=== PATIENT | male | born 1970 | race Two or more races ===

== ENCOUNTER 2020-07-15 05:15 | Inpatient (IN) | payer MEDICAID ==
[~2020-07-15] VITALS: Ht 180.3 cm; Wt 78.9 kg
[2020-07-15 05:57] LABS: Basophils # (auto) 0 10 ^3/uL (0-0.2); Basophils % (auto) 0.3 % (0.0-2.0); Eosinophils # (auto) 0 10 ^3/uL (0-0.8); Hematocrit 52.2 % (41.0-53.0); Hemoglobin 17.7 g/dL (13.5-17.5); Lymphocytes # (auto) 0.7 10 ^3/uL (0.4-5.4); Lymphocytes % (auto) 4.1 % (10.0-50.0); Mean Corpuscular Hemoglobin 30.3 pg (28.0-32.0); Mean Corpuscular Volume 89.1 fL (80.0-100.0); Monocytes # (auto) 0.7 10 ^3/uL (0-1.3); Monocytes % (auto) 3.8 % (0.0-12.0); Neutrophils # (auto) 16.3 10 ^3/uL (1.6-8.6); Neutrophils % (auto) 91.8 % (37.0-80.0); Platelet Count (auto) 269 10^3/uL (140-450); Red Blood Cells 5.86 10^6/uL (4.5-5.90); Red Cell Distribution Width 13.2 % (11.8-14.3); White Blood Cell 17.8 10^3/uL (4.4-10.8)
[2020-07-15 06:12] LABS: Albumin 3.5 g/dL (3.4-5.0); Calcium 8.4 mg/dL (8.5-10.1); Potassium 3.6 mmol/L (3.5-5.1)
[2020-07-15 06:16] LABS: BUN/Creatinine Ratio 18.7; Bilirubin, Total 0.5 mg/dL (0.2-1.0); Total Protein 7.4 g/dL (6.4-8.2)
[2020-07-15] MEDS ORDERED: ONDANSETRON HCL 4 MG/2 ML VIAL IV ONE (06:45)
[2020-07-15] MEDS ORDERED: PANTOPRAZOLE 40 MG/10 ML VIAL INJ IV ONE (06:45)
[2020-07-15] MEDS ORDERED: SODIUM CHLORIDE 0.9% 1,000 ML IV ONE ×2 (06:45)
[2020-07-15] MEDS ORDERED: metroNIDAZOLE 500MG/100ML 100 ML IV ONE (07:30)
[2020-07-15 08:16] LABS: Lactic Acid w/Reflex 2.9 mmol/L (0.4-2.0)
[2020-07-15 08:25] LABS: Urine WBC None Seen /hpf (0 - 3)
[2020-07-15 08:40] LABS: Urine Bacteria NONE SEEN /hpf (None Seen); Urine Blood Negative /uL (Negative); Urine Mucus FEW (None Seen); Urine Specific Gravity 1.033 (1.001-1.035)
[2020-07-15] MEDS ORDERED: ACETAMINOPHEN 325 MG TAB PO PRN (10:45)
[2020-07-15] MEDS ORDERED: METOCLOPRAMIDE HCL 5MG/ml INJ 2ml VIAL IV PRN (10:45)
[2020-07-15] MEDS: D5W/SOD CHL 0.45% 1,000 ML IV SCH (10:45)
[2020-07-15] MEDS ORDERED: MORPHINE SULF INJ 2 MG/ML SYRINGE 1ML IV PRN ×2 (10:45)
[2020-07-15] MEDS ORDERED: NITROGLYCERIN 0.4 MG SL TAB SL PRN (10:45)
[2020-07-15] MEDS ORDERED: DEXTROSE (50%) 50ML SYRG IV PRN (10:45)
[2020-07-15] MEDS ORDERED: ALUM & MAG HYDROX-SIMETH LIQ(MAALOX) 30 ML PO PRN (10:45)
[2020-07-15] MEDS ORDERED: HYDROcodone-ACET 5/325MG TAB PO PRN (10:45)
[2020-07-15] MEDS: cefTRIAXone 1GM/50ML D5W 50 ML IV SCH (11:04)
[2020-07-15 11:19] LABS: Cholesterol 144 mg/dL (< 200)
[2020-07-15 11:22] LABS: HDL Cholesterol 52 mg/dL (40-59); LDL Cholesterol 76 mg/dL (< 100); Triglycerides 78 mg/dL (< 150)
[2020-07-15 11:43] LABS: INR 0.99 (0.9-1.15); Partial Thromboplastin Time 28.8 sec (23.0-31.2)
[2020-07-15 11:58] LABS: Alcohol, Urine < 3.0 mg/dL (0-10); Amphetamine Screen, Urine NEGATIVE (NEGATIVE); Barbiturate Scree,Urine NEGATIVE (NEGATIVE); Benzodiazephine Screen, Urine NEGATIVE (NEGATIVE); Cannabinoid Screen, Urine POSITIVE (NEGATIVE); Cocaine Screen, Urine NEGATIVE (NEGATIVE); Phencyclidine Screen, Urine NEGATIVE (NEGATIVE)
[2020-07-15 12:04] LABS: Opiate Scree,Urine NEGATIVE (NEGATIVE)
[2020-07-15 12:28] VITALS: BP 149/80
[2020-07-15] MEDS: ACCU-CHEK COMFORT CURVE STRIP VI SCH ×2 (12:28→18:27)
[2020-07-15] MEDS: InsuLIN REG 1unit/0.01ml Soln (100units/ml) SC SCH ×2 (12:28→18:30)
[2020-07-15] MEDS: hydrALAZINE HCL 20 MG/ML VL IV SCH ×3 (12:30→23:58)
[2020-07-15 12:51] VITALS: BP 142/79
[2020-07-15] MEDS: metroNIDAZOLE 500MG/100ML 100 ML IV SCH ×2 (13:58→21:55)
[2020-07-15 16:35] VITALS: BP 154/81
[2020-07-15] MEDS: SUCRALFATE 1 GM/10 ML ORAL SUSP PO SCH ×2 (17:00→21:55)
[2020-07-15] MEDS ORDERED: GLIP10TA9 PO (17:25)
[2020-07-15] MEDS ORDERED: HYDR25TA4 PO (17:25)
[2020-07-15] MEDS ORDERED: SIMV-8 PO (17:25)
[2020-07-15] MEDS ORDERED: METF-370 PO (17:25)
[2020-07-15] MEDS ORDERED: LISI-646 PO (17:25)
[2020-07-15] MEDS ORDERED: GAB100C GT (17:25)
[2020-07-15] MEDS ORDERED: ASPI-543 PO (17:25)
[2020-07-15] MEDS: ESOMEPRAZOLE 40 MG/5ml VIAL INJ IV SCH (21:55)
[2020-07-15 22:00] VITALS: BP_SYST 127; BP_SYST 145; BP_DIAS 69; BP_DIAS 80
[2020-07-16] MEDS: InsuLIN REG 1unit/0.01ml Soln (100units/ml) SC SCH ×3 (00:01→12:00)
[2020-07-16] MEDS: ACCU-CHEK COMFORT CURVE STRIP VI SCH ×3 (00:01→11:49)
[2020-07-16 05:00] VITALS: BP 134/81
[2020-07-16] MEDS: metroNIDAZOLE 500MG/100ML 100 ML IV SCH ×2 (06:03→14:00)
[2020-07-16] MEDS: hydrALAZINE HCL 20 MG/ML VL IV SCH ×2 (06:03→12:00)
[2020-07-16] MEDS: D5W/SOD CHL 0.45% 1,000 ML IV SCH (06:03)
[2020-07-16] MEDS: SUCRALFATE 1 GM/10 ML ORAL SUSP PO SCH ×3 (06:10→17:00)
[2020-07-16 06:55] LABS: Basophils # (auto) 0 10 ^3/uL (0-0.2); Basophils % (auto) 0.3 % (0.0-2.0); Eosinophils # (auto) 0.1 10 ^3/uL (0-0.8); Eosinophils % (auto) 0.4 % (0.0-7.0); Hematocrit 47.2 % (41.0-53.0); Hemoglobin 16.5 g/dL (13.5-17.5); Lymphocytes # (auto) 1.5 10 ^3/uL (0.4-5.4); Mean Corpuscular Hemoglobin 30.7 pg (28.0-32.0); Mean Corpuscular Volume 87.7 fL (80.0-100.0); Monocytes # (auto) 1.1 10 ^3/uL (0-1.3); Monocytes % (auto) 8.2 % (0.0-12.0); Neutrophils # (auto) 11.1 10 ^3/uL (1.6-8.6); Neutrophils % (auto) 80.1 % (37.0-80.0); Platelet Count (auto) 258 10^3/uL (140-450); Red Blood Cells 5.38 10^6/uL (4.5-5.90); Red Cell Distribution Width 13.1 % (11.8-14.3); White Blood Cell 13.8 10^3/uL (4.4-10.8)
[2020-07-16] MEDS ORDERED: LIDOCAINE VISCOUS 2% 15ML UD ONE (08:39)
[2020-07-16] MEDS ORDERED: SODIUM CHLORIDE LOCK 10 ML ONE (08:39)
[2020-07-16] MEDS ORDERED: diphenhdrAMINE HCL 50 MG/1 ML VL ONE (08:40)
[2020-07-16 09:00] VITALS: BP 136/81
[2020-07-16] MEDS: cefTRIAXone 1GM/50ML D5W 50 ML IV SCH (09:00)
[2020-07-16] MEDS: ESOMEPRAZOLE 40 MG/5ml VIAL INJ IV SCH (10:00)
[2020-07-16] MEDS: MIDAZOLAM HCL 5 MG/ML-1ML VIAL ONE ×2 (10:45→10:48)
[2020-07-16] MEDS: fentaNYL CITRATE 100 MCG/2 ML VL ONE ×2 (10:45→10:48)
[2020-07-16 13:00] VITALS: BP 136/82
[2020-07-16] MEDS ORDERED: PANT40TA2 PO (14:28)
[2020-07-16] MEDS ORDERED: SUCR1SUS5 PO (14:28)
[2020-07-16] MEDS ORDERED: METR500T PO (14:44)
[2020-07-16 17:00] VITALS: BP 131/78
== END 2020-07-16 18:00 | disposition home or self-care (01) | DRG 241 ==
LOC: ER 05:15 → OVERFLOW 10:42 → WEST WING 11:50
PROVIDERS: ADMIT Hospitalist; ATTEND Hospitalist
PROC: 0DB68ZX Excision of Stomach, Via Natural or Artificial Opening Endoscopic, Diagnostic (ICD-10-PCS; 2020-07-16)
PROC: 0DB98ZX Excision of Duodenum, Via Natural or Artificial Opening Endoscopic, Diagnostic (ICD-10-PCS; principal; 2020-07-16 10:40)
DX: K29.00 Acute gastritis without bleeding (principal); K26.9 Duodenal ulcer, unspecified as acute or chronic, without hemorrhage or perforation; Z20.822 Contact with and (suspected) exposure to COVID-19; D72.829 Elevated white blood cell count, unspecified; I11.9 Hypertensive heart disease without heart failure; E11.9 Type 2 diabetes mellitus without complications; K29.80 Duodenitis without bleeding; K44.9 Diaphragmatic hernia without obstruction or gangrene; Z83.3 Family history of diabetes mellitus
CPT/HCPCS: 36415; 43239; 71045; 74176; 80053; 80061; 80307; 81001; 82962; 83036; 83605; 83690; 85025; 85610; 85730; 86677; 87040; 87426; 93005; 96361; 96365; 96367; 96375; C9113; G0378; J0696; J1815; J2250; J2405; J3490

== ENCOUNTER 2020-08-27 11:31 | Inpatient (IN) | payer MEDICAID ==
[~2020-08-27] VITALS: Ht 180.3 cm; Wt 85.6 kg
[~2020-08-27 11:31] MED LIST: ASPI-543 PO; GAB100C GT; GLIP10TA9 PO; HYDR25TA4 PO; LISI20TA28 PO; METF-370 PO; METR500T PO; PANT40TA2 PO; SIMV-8 PO; SUCR1SUS5 PO
[2020-08-27 12:13] LABS: Basophils # (auto) 0.1 10 ^3/uL (0-0.2); Eosinophils # (auto) 0.3 10 ^3/uL (0-0.8); Lymphocytes # (auto) 2.6 10 ^3/uL (0.4-5.4); Mean Corpuscular Volume 86.7 fL (80.0-100.0)
[2020-08-27 12:15] LABS: Basophils % (auto) 0.8 % (0.0-2.0); Eosinophils % (auto) 2.4 % (0.0-7.0); Hematocrit 54.6 % (41.0-53.0); Hemoglobin 18.9 g/dL (13.5-17.5); Lymphocytes % (auto) 23.1 % (10.0-50.0); Mean Corpuscular Hgb Conc. 34.6 g/dL (32.0-36.0); Monocytes # (auto) 1.2 10 ^3/uL (0-1.3); Monocytes % (auto) 10.4 % (0.0-12.0); Neutrophils # (auto) 7.1 10 ^3/uL (1.6-8.6); Neutrophils % (auto) 63.3 % (37.0-80.0); Nucleated Red Blood Cells % 0.6 %; Platelet Count (auto) 348 10^3/uL (140-450); Red Blood Cells 6.29 10^6/uL (4.5-5.90); Red Cell Distribution Width 12.9 % (11.8-14.3); White Blood Cell 11.3 10^3/uL (4.4-10.8)
[2020-08-27 12:18] LABS: Albumin 4.2 g/dL (3.4-5.0); Calcium 9.7 mg/dL (8.5-10.1); Potassium 4.6 mmol/L (3.5-5.1)
[2020-08-27 12:21] LABS: BUN/Creatinine Ratio 19.8; Bilirubin, Total 1.8 mg/dL (0.2-1.0); Total Protein 8.2 g/dL (6.4-8.2)
[2020-08-27] MEDS ORDERED: PANTOPRAZOLE 40 MG TAB PO ONE (12:30)
[2020-08-27] MEDS ORDERED: SODIUM CHLORIDE 0.9% 1,000 ML IV ONE (16:00)
[2020-08-27] MEDS ORDERED: ONDANSETRON HCL 4 MG/2 ML VIAL IV PRN (16:00)
[2020-08-27] MEDS ORDERED: ACETAMINOPHEN 325 MG TAB PO PRN (16:00)
[2020-08-27] MEDS: SUCRALFATE 1 GM/10 ML ORAL SUSP PO SCH ×2 (17:25→21:32)
[2020-08-27 20:59] VITALS: BP 119/79
[2020-08-27 21:19] VITALS: BP 119/79
[2020-08-27] MEDS ORDERED: HYDR-4795 PO (21:24)
[2020-08-27] MEDS: PANTOPRAZOLE 40 MG TAB PO SCH (21:32)
[2020-08-27] MEDS: HYDROcodone-ACET 5/325MG TAB PO PRN (21:32)
[2020-08-27] MEDS ORDERED: PANTOPRAZOLE 40 MG TAB PO SCH (22:00)
[2020-08-28 05:00] VITALS: BP 113/78
[2020-08-28 06:02] LABS: Potassium 4.2 mmol/L (3.5-5.1)
[2020-08-28 06:11] LABS: Calcium 8.8 mg/dL (8.5-10.1)
[2020-08-28 06:16] LABS: Basophils # (auto) 0.1 10 ^3/uL (0-0.2); Eosinophils # (auto) 0.3 10 ^3/uL (0-0.8); Lymphocytes # (auto) 2.2 10 ^3/uL (0.4-5.4); Monocytes # (auto) 0.9 10 ^3/uL (0-1.3)
[2020-08-28 06:17] LABS: Eosinophils % (auto) 3.8 % (0.0-7.0); Hematocrit 51.5 % (41.0-53.0); Hemoglobin 17.8 g/dL (13.5-17.5); Lymphocytes % (auto) 28.2 % (10.0-50.0); Mean Corpuscular Hemoglobin 30.2 pg (28.0-32.0); Mean Corpuscular Hgb Conc. 34.5 g/dL (32.0-36.0); Mean Corpuscular Volume 87.5 fL (80.0-100.0); Neutrophils # (auto) 4.5 10 ^3/uL (1.6-8.6); Nucleated Red Blood Cells % 1.3 %; Platelet Count (auto) 283 10^3/uL (140-450); Red Blood Cells 5.88 10^6/uL (4.5-5.90); Red Cell Distribution Width 13.1 % (11.8-14.3)
[2020-08-28] MEDS: SUCRALFATE 1 GM/10 ML ORAL SUSP PO SCH ×4 (06:40→21:38)
[2020-08-28 09:00] VITALS: BP 119/80
[2020-08-28] MEDS: PANTOPRAZOLE 40 MG TAB PO SCH ×2 (10:00→21:38)
[2020-08-28 13:00] VITALS: BP 125/78
[2020-08-28 16:40] VITALS: BP 126/86
[2020-08-28] MEDS: HYDROcodone-ACET 5/325MG TAB PO PRN (20:17)
[2020-08-28 22:00] VITALS: BP 125/92
[2020-08-28] MEDS ORDERED: glipiZIDE 5 MG TAB PO ONE (22:30)
[2020-08-28] MEDS ORDERED: INSULIN LANTUS (GLARGINE) 1 /0.01ml (100units/ml) SC ONE (22:45)
[2020-08-28] MEDS ORDERED: DEXTROSE (50%) 50ML SYRG IV PRN (22:45)
[2020-08-29] MEDS ORDERED: ACCU-CHEK COMFORT CURVE STRIP VI SCH
[2020-08-29] MEDS ORDERED: InsuLIN REG 1unit/0.01ml Soln (100units/ml) SC SCH
[2020-08-31] MEDS ORDERED: SUCR1SUS5 PO (11:32)
[2020-08-31] MEDS ORDERED: PANT40TA2 PO (11:32)
== END 2020-08-29 00:27 | disposition home or self-care (01) | DRG 251 ==
LOC: ER 11:31 → OVERFLOW 15:51 → CENTRAL 20:30
PROVIDERS: ADMIT Internal Medicine; ATTEND Internal Medicine
DX: R10.9 Unspecified abdominal pain (principal); K31.84 Gastroparesis; E11.43 Type 2 diabetes mellitus with diabetic autonomic (poly)neuropathy; K52.9 Noninfective gastroenteritis and colitis, unspecified; Z20.822 Contact with and (suspected) exposure to COVID-19; K92.1 Melena; E78.5 Hyperlipidemia, unspecified; I10 Essential (primary) hypertension; Z87.11 Personal history of peptic ulcer disease
CPT/HCPCS: 36415; 74176; 78226; 80048; 80053; 85025; 87081; 87426; 96360; 96361; G0378

== ENCOUNTER 2020-12-01 08:15 | Emergency (ER) | payer MEDICAID ==
[~2020-12-01] VITALS: Ht 180.3 cm; Wt 90.7 kg
[~2020-12-01 08:15] MED LIST changes: -GAB100C GT; +HYDR-4795 PO
[2020-12-01 09:39] VITALS: BP 119/86
== END 2020-12-01 09:45 | disposition home or self-care (01) ==
LOC: ER 08:15
DX: B34.9 Viral infection, unspecified (principal); I10 Essential (primary) hypertension; E11.9 Type 2 diabetes mellitus without complications; Z79.82 Long term (current) use of aspirin; Z79.899 Other long term (current) drug therapy; Z20.822 Contact with and (suspected) exposure to COVID-19
CPT/HCPCS: 36415; 71045; 82962; 87426

== ENCOUNTER 2020-12-21 08:38 | Emergency (ER) | payer MEDICAID ==
[~2020-12-21] VITALS: Ht 180.3 cm; Wt 84.4 kg
[2020-12-21] MEDS ORDERED: SODIUM CHLORIDE 0.9% 1,000 ML IV ONE ×2 (09:00)
[2020-12-21] MEDS ORDERED: ONDANSETRON HCL 4 MG/2 ML VIAL ONE (09:41)
[2020-12-21] MEDS ORDERED: ONDANSETRON HCL 4 MG/2 ML VIAL IV ONE (09:45)
[2020-12-21 09:56] LABS: Basophils # (auto) 0 10 ^3/uL (0-0.2); Basophils % (auto) 0.4 % (0.0-2.0); Eosinophils # (auto) 0.1 10 ^3/uL (0-0.8); Eosinophils % (auto) 1.4 % (0.0-7.0); Hematocrit 50.2 % (41.0-53.0); Hemoglobin 17.3 g/dL (13.5-17.5); Lymphocytes # (auto) 1.2 10 ^3/uL (0.4-5.4); Lymphocytes % (auto) 11.5 % (10.0-50.0); Mean Corpuscular Hgb Conc. 34.5 g/dL (32.0-36.0); Mean Corpuscular Volume 87.2 fL (80.0-100.0); Monocytes # (auto) 0.6 10 ^3/uL (0-1.3); Neutrophils # (auto) 8.6 10 ^3/uL (1.6-8.6); Neutrophils % (auto) 80.7 % (37.0-80.0); Nucleated Red Blood Cells % 0.2 %; Red Blood Cells 5.76 10^6/uL (4.5-5.90); Red Cell Distribution Width 13.3 % (11.8-14.3); White Blood Cell 10.7 10^3/uL (4.4-10.8)
[2020-12-21 10:18] LABS: Albumin 3.9 g/dL (3.4-5.0); Anion Gap 9 (5-15); Blood Urea Nitrogen 16 mg/dL (7-18); Calcium 9.3 mg/dL (8.5-10.1); Carbon Dioxide 27 mmol/L (21-32); Chloride 98 mmol/L (98-107); Glucose 254 mg/dL (74-106); Potassium 4.6 mmol/L (3.5-5.1); Sodium 134 mmol/L (136-145)
[2020-12-21 10:24] LABS: Alanine Aminotransferase 36 U/L (16-61); Alkaline Phosphatase 83 U/L (45-117); Aspartate Aminotransferase 21 U/L (15-37); BUN/Creatinine Ratio 16.5; Bilirubin, Total 1.8 mg/dL (0.2-1.0); GFR African American 105 mL/min; GFR Non-African American 86 mL/min; Total Protein 7.7 g/dL (6.4-8.2)
[2020-12-21 11:03] LABS: Urine Bacteria NONE SEEN /hpf (None Seen); Urine Blood Negative /uL (Negative); Urine Mucus FEW (None Seen); Urine Specific Gravity 1.017 (1.001-1.035); Urine WBC 1 /hpf (0 - 3)
[2020-12-21 14:32] VITALS: BP 122/73
== END 2020-12-21 16:21 | disposition home or self-care (01) ==
LOC: ER 08:38
DX: R53.1 Weakness (principal); E11.65 Type 2 diabetes mellitus with hyperglycemia; I10 Essential (primary) hypertension; Z79.82 Long term (current) use of aspirin; Z79.899 Other long term (current) drug therapy; Z20.822 Contact with and (suspected) exposure to COVID-19
CPT/HCPCS: 36415; 70450; 71045; 74176; 80053; 81001; 82962; 83036; 84484; 85025; 87426; 93005; 96361; 96374; 99285; C9803; J2405; J7030; U0003

== ENCOUNTER 2022-02-08 23:23 | Emergency (ER) | payer MEDICAID ==
[~2022-02-08] VITALS: Ht 180.3 cm; Wt 90.0 kg
[2022-02-08 23:30] VITALS: BP 135/81
[2022-02-08] MEDS ORDERED: diazePAM 5 MG TAB PO ONE (23:30)
[2022-02-08] MEDS ORDERED: ONDANSETRON HCL 4 MG/2 ML VIAL IV ONE (23:30)
[2022-02-08] MEDS ORDERED: SODIUM CHLORIDE 0.9% 500 ML IV ONE (23:30)
[2022-02-09 00:11] LABS: Basophils # (auto) 0.1 10 ^3/uL (0-0.2); Basophils % (auto) 0.5 % (0.0-2.0); Eosinophils # (auto) 0.3 10 ^3/uL (0-0.8); Eosinophils % (auto) 2.6 % (0.0-7.0); Hematocrit 47.4 % (41.0-53.0); Hemoglobin 15.9 g/dL (13.5-17.5); Lymphocytes # (auto) 1.8 10 ^3/uL (0.4-5.4); Lymphocytes % (auto) 13.1 % (10.0-50.0); Mean Corpuscular Hemoglobin 30.1 pg (28.0-32.0); Mean Corpuscular Hgb Conc. 33.5 g/dL (32.0-36.0); Mean Corpuscular Volume 89.7 fL (80.0-100.0); Monocytes # (auto) 0.8 10 ^3/uL (0-1.3); Monocytes % (auto) 5.8 % (0.0-12.0); Neutrophils # (auto) 10.5 10 ^3/uL (1.6-8.6); Red Blood Cells 5.29 10^6/uL (4.5-5.90); Red Cell Distribution Width 13.5 % (11.8-14.3); White Blood Cell 13.4 10^3/uL (4.4-10.8)
[2022-02-09 00:19] LABS: BUN/Creatinine Ratio 21.1; Calcium 8.9 mg/dL (8.5-10.1); Potassium 3.5 mmol/L (3.5-5.1)
[2022-02-09 00:22] LABS: Bilirubin, Total 0.6 mg/dL (0.2-1.0); Total Protein 7.2 g/dL (6.4-8.2)
[2022-02-09] MEDS ORDERED: InsuLIN REG 1unit/0.01ml Soln (100units/ml) IV ONE (08:00)
== END 2022-02-09 09:31 | disposition home or self-care (01) ==
LOC: ER 23:23 → EDBD 23:23 → ER 02-09 09:31
DX: E11.65 Type 2 diabetes mellitus with hyperglycemia (principal); F12.929 Cannabis use, unspecified with intoxication, unspecified; I10 Essential (primary) hypertension; Z91.14 Patient's other noncompliance with medication regimen
CPT/HCPCS: 36415; 71045; 80053; 84484; 85025; 93005

== ENCOUNTER 2025-01-25 17:09 | Emergency (ER) | payer MEDICAID ==
[~2025-01-25] VITALS: Ht 180.3 cm; Wt 90.0 kg
[~2025-01-25 17:09] MED LIST changes: -LISI20TA28 PO; +LISI20TA56 PO; +NIRM1TAB7 PO; -SIMV-8 PO; +SIMV20TA20 PO
--- NOTE | 2025-01-25 17:21 | ECG ---
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
[2025-01-25 18:06] VITALS: TEMP 97.7
[2025-01-25 20:14] VITALS: BP 117/78; RESP 15; O2SAT 94
[2025-01-25 20:31] VITALS: PULSE 66
--- NOTE | 2025-01-25 20:31 | ED.PDOC ---
HPI (NEURO) HPI Comments 54-year-old male presented to the emergency department complaining of dizzy nauseous headache patient has a history of hypertension GERD diabetes high cholesterol Chief Complaint: Dizziness Time Seen by MD: 17:27 Primary Care Provider: OUT OF AREA Reviewed Notes: Nurses Notes, Medications, Allergies Information Source: Patient Mode of Arrival: EMS Severity: Moderate Dizziness/Weakness Severity: Unable to do activities Headache Severity: Mild Timing: Hours Duration: Since onset Headache Quality: Aching Headache Location: Occipital Onset: At rest Circumstances: Spontaneous Symptoms: Vertigo, Imbalance, Weakness After: Headache History of: DM, Hypertension, Hypoglycemia Modifying factors: Change in position, Turning head, Head position, Head mo vement, Light Associated Signs and Symptoms: Headache, Nausea, Blurred Vision Past Medical History PAST MEDICAL HISTORY: DM, GERD, High Lipids, HTN Surgical History: Hernia Repair Family History Family History: Reviewed,noncontributory to illness Social History Smoker: Non-Smoker Alcohol: Denies ETOH Use Drugs: Denies Drug Use Lives In: Home Constitutional: reports: malaise; denies: chills, diaphoresis, fatigue, fever, sweats, weakness, others EENTM: reports: blurred vision; denies: double vision, ear bleeding, ear discharge, ear drainage, ear pain, ear ringing, eye pain, eye redness, hearing loss, mouth pain, mouth swelling, nasal discharge, nose bleeding, nose congestion, nose pain, photophobia, tearing, throat pain, throat swelling, voice changes, others Respiratory: denies: cough, hemoptysis, orthopnea, SOB at rest, shortness of breath, SOB with excertion, stridor, wheezing, others Cardiovascular: denies: chest pain, dizzy spells, diaphoresis, Dyspnea on exertion, edema, irregular heart beat, left arm pain, lightheadedness, palpitations, PND, syncope, others Gastrointestinal: denies: abdomen distended, abdominal pain, blood streaked bowels, constipated, diarrhea, dysphagia, difficulty swallowing, hematemesis, melena, nausea, poor appetite, poor fluid intake, rectal bleeding, rectal pain, vomiting, others Genitourinary: denies: burning, dysuria, flank pain, frequency, hematuria, incontinence, penile discharge, penile sore, pain, testicle pain, testicle swelling, urgency, others Neurological: reports: headache; denies: dizziness, fainting, left sided numbness, left sided weakness, numbness, paresthesia, pre-existing deficit, right sided numbness, right sided weakness, seizure, speech problems, tingling, tremors, weakness, others Musculoskeletal: denies: back pain, gout, joint pain, joint swelling, muscle pain, muscle stiffness, neck pain, others Integumetry: denies: bruises, change in color, change in hair/nails, dryness, laceration, lesions, lumps, rash, wounds, others Allergic/Immunocompromised: denies: Difficulty Healing, Frequent Infections, Hives, Itching, others Hematologic/Lymphatic: denies: anemia, blood clots, easy bleeding, easy bruising, swollen glands, others Endocrine: denies: excessive hunger, excessive sweating, excessive thirst, excessive urination, flushing, intolerance to cold, intolerance to heat, unexplained weight gain, unexplained weight loss, others Psychiatric: denies: anxiety, bipolar disorder, depression, hopeless, panic disorder, schizophrenia, sleepless, suicidal, others All Other Systems: Reviewed and Negative Physical Exam General Appearance: Moderate Distress, Obese HEENT: Normal ENT Inspection, PERRL/EOMI Neck: Full Range of Motion, Non-Tender, Normal, Normal Inspection Respiratory: Chest Non-Tender, Lungs Clear, No Accessory Muscle Use, No Respiratory Distress, Normal Breath Sounds Cardiovascular: No Edema, No JVD, No Murmur, No Gallop, Normal Peripheral Pulses, Regular Rate/Rhythm Breast Exam: Deferred Gastrointestinal: No Organomegaly, Non Tender, No Pulsatile Mass, Normal Bowel Sounds, Soft Genitalia: Deferred Pelvic: Deferred Rectal: Deferred Extremities: No calf tenderness, Normal capillary refill, Normal inspection, Normal range of motion, Non-tender, No pedal edema 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 Was a procedure done?: No Differential Diagnosis (SZ) Seizure: Hyperventilation, Hypocalcemia, Hypoglycemia, Hyponatremia, Hypoxemia, Mass Lesion CVA: Electrolyte Imbalance General Weakness: Anemia, Dehydration, Dysrhythmia, Electrolyte imbalance, Hypoglycemia, Hypotension, Hypovolemia, Labyrinthitis, Vertigo: peripheral, Vestibular neuronitis Headache: N/A X-Ray, Labs, Meds, VS Vital Signs Date Time Temp Pulse Resp B/P (MAP) Pulse Ox O2 Delivery O2 Flow Rate FiO2 01/25/25 22:16 Room Air* 0 21 01/25/25 20:31 66 01/25/25 20:14 83 15 117/78 (91) 94 01/25/25 18:06 97.7 68 16 136/89 (105) 97 97.7 01/25/25 17:19 66 01/25/25 17:14 97.4 66 18 127/81 96 97.4 Lab Test 01/25/25 20:32 Range/Units White Blood Count 12.3 H 4.4-10.8 10^3/uL Red Blood Count 5.32 4.5-5.90 10^6/uL Hemoglobin 15.9 13.5-17.5 g/dL Hematocrit 46.7 41.0-53.0 % Mean Corpuscular Volume 87.7 80.0-100.0 fL Mean Corpuscular Hemoglobin 29.8 28.0-32.0 pg Mean Corpuscular Hemoglobin Concent 34.0 32.0-36.0 g/dL Red Cell Distribution Width 13.3 11.8-14.3 % Platelet Count 243 140-450 10^3/uL Mean Platelet Volume 8.4 6.9-10.8 fL Neutrophils (%) (Auto) 88.4 H 37.0-80.0 % Lymphocytes (%) (Auto) 7.5 L 10.0-50.0 % Monocytes (%) (Auto) 3.3 0.0-12.0 % Eosinophils (%) (Auto) 0.5 0.0-7.0 % Basophils (%) (Auto) 0.3 0.0-2.0 % Neutrophils # (Auto) 10.9 H 1.6-8.6 10 ^3/uL Lymphocytes # (Auto) 0.9 0.4-5.4 10 ^3/uL Monocytes # (Auto) 0.4 0-1.3 10 ^3/uL Eosinophils # (Auto) 0.1 0-0.8 10 ^3/uL Basophils # (Auto) 0 0-0.2 10 ^3/uL Nucleated Red Blood Cells 0.0 % Sodium Level 140 136-145 mmol/L Potassium Level 4.3 3.5-5.1 mmol/L Chloride Level 103 98-107 mmol/L Carbon Dioxide Level 27 20-31 mmol/L Anion Gap 10 5-15 Blood Urea Nitrogen 14 9-23 mg/dL Creatinine 0.78 0.700-1.30 mg/dL Glomerular Filtration Rate Calc 105 >90 mL/min BUN/Creatinine Ratio 17.9 10.0-20.0 Serum Glucose 239 H 74-106 mg/dL Calcium Level 9.5 8.7-10.4 mg/dL Magnesium Level 1.9 1.6-2.6 mg/dL Total Bilirubin 0.9 0.2-1.0 mg/dL Aspartate Amino Transferase (AST) 26 13-40 U/L Alanine Aminotransferase (ALT) 44 H 7-40 U/L Alkaline Phosphatase 112 46-116 U/L Troponin I High Sensitivity < 3 L </=54 ng/L Total Protein 7.5 5.7-8.2 g/dL Albumin 4.6 3.2-4.8 g/dL Current Medications Medications (Trade) Dose Ordered Sig/Jose Route Start Time Stop Time Status Last Admin Sodium Chloride 500 ml @ 500 mls/hr Q1H ONCE IVB 01/25/25 20:15 01/25/25 21:14 DC 01/25/25 20:32 Sodium Chloride 1,000 ml @ 150 mls/hr Q6H40M ONCE IV 01/25/25 20:15 01/25/25 22:19 DC 01/25/25 20:32 Meclizine HCl (Antivert Tablet) 50 mg ONCE ONCE PO 01/25/25 21:45 01/25/25 21:46 DC 01/25/25 21:56 X-Ray, Labs, Meds, VS Comment Course in the emergency department eventful patient came in because of dizziness and nausea Blood pressure 127/81 heart rate 66 blood sugar 145 The EKG shows normal sinus rhythm at 66 with left posterior fascicular block The CT head is normal Troponin less than three BNP normal except for blood sugar of 239 CBC [id number] with 88% neutrophils and normal H&H Magnesium 1.9 Patient will be discharged home to follow up with his PCP Time of 1ST Reevaluation: 20:30 Reevaluation 1ST: Unchanged Time of 2ND Reevaluation: 21:25 Reevaluation 2ND: Improved Consultation: PCP Patient Education/Counseling: Diagnosis, Treatment, Prognosis, Need For Follow Up Family Education/Counseling: Diagnosis, Treatment, Prognosis, Need For Follow Up, No Family Present Departure 1 Departure Time of Disposition: 21:41 Impression: Primary Impression: Vertigo Additional Impressions: Nausea and vomiting Qualified Codes: R11.2 - Nausea with vomiting, unspecified Generalized weakness Disposition: HOME / SELF CARE / HOMELESS Condition: Fair Additional Instructions: Push fluids and follow up with your PCP e-Prescriptions Meclizine HCl (Antivert) 25 Mg Chw 50 MG PO TID for 10 Days, #30 TAB.CHEW Prov: ELYSSA EVANS MD 01/25/25 Ondansetron Odt 4MG Tab (ZOFRAN PO) 4 Mg Tb 4 MG PO TID for 10 Days, #30 TAB ODT TAB-DISSOLVE IN MOUTH, THEN SWALLOW Prov: ELYSSA EVANS MD 01/25/25 Discharged With: Self, Relative Critical Care Note Critical Care Time?: No Stability Stability form required: No Heart Score Heart Score: Heart Score Response (Comments) Value History N/A 0 EKG Normal 0 Age >65 2 Risk Factors 1 or 2 risk factors 1 Troponin Normal limit 0 Total 3 ELYSSA EVANS MD Jan 25, 2025 20:31
[2025-01-25] MEDS: SODIUM CHLORIDE 0.9% 500 ML IVB ONE (20:32)
[2025-01-25] MEDS: SODIUM CHLORIDE 0.9% 1,000 ML IV ONE (20:32)
--- NOTE | 2025-01-25 20:34 | DVH ---
EXAM: CT HEAD WITHOUT CONTRAST INDICATION: Pain and severe vertigo TECHNIQUE: CT images of the head were obtained without administration of IV contrast. CT scans at [facility] facility use dose modulation, iterative reconstruction, and/or weight based dosing when appropriate to reduce radiation dose to as low as reasonably achievable. COMPARISON: HEAD WITHOUT CONTRAST on DOS: 12/21/20 FINDINGS: PARENCHYMA: No acute hemorrhage. There is no mass effect, midline shift, or herniation. There is pres ervation of the valderrama white differentiation. VENTRICLES: No hydrocephalus. EXTRA-AXIAL SPACES: No extra-axial fluid collections. OTHER: The bony structures are intact. Visualized portions of the paranasal sinuses and mastoid air cells are clear. IMPRESSION: 1. No CT evidence of an acute intracranial abnormality.
[2025-01-25 20:45] LABS: Hematocrit 46.7 % (41.0-53.0); Hemoglobin 15.9 g/dL (13.5-17.5); Mean Corpuscular Hemoglobin 29.8 pg (28.0-32.0); Mean Corpuscular Volume 87.7 fL (80.0-100.0); Nucleated Red Blood Cells % 0.0 %
[2025-01-25 20:57] LABS: Albumin 4.6 g/dL (3.2-4.8); Alkaline Phosphatase 112 U/L (46-116); Anion Gap 10 (5-15); BUN/Creatinine Ratio 17.9 (10.0-20.0); Bilirubin, Total 0.9 mg/dL (0.2-1.0); Blood Urea Nitrogen 14 mg/dL (9-23); Calcium 9.5 mg/dL (8.7-10.4); Carbon Dioxide 27 mmol/L (20-31); Chloride 103 mmol/L (98-107); Magnesium 1.9 mg/dL (1.6-2.6); Potassium 4.3 mmol/L (3.5-5.1); Sodium 140 mmol/L (136-145); Total Protein 7.5 g/dL (5.7-8.2)
[2025-01-25 21:06] LABS: Alanine Aminotransferase 44 U/L (7-40); Glucose 239 mg/dL (74-106)
[2025-01-25] MEDS ORDERED: MECL25CH85 PO (21:44)
[2025-01-25] MEDS ORDERED: ZOFR4T PO (21:44)
[2025-01-25] MEDS: MECLIZINE HCL 25 MG TAB PO ONE (21:56)
== END 2025-01-25 22:17 | disposition home or self-care (01) ==
LOC: EDUNIT# 17:09 → ER 17:09 → EDBD 17:09 → ER 22:17
DX: R55 Syncope and collapse (principal); R11.2 Nausea with vomiting, unspecified; R51.9 Headache, unspecified; I10 Essential (primary) hypertension; E11.9 Type 2 diabetes mellitus without complications; E78.5 Hyperlipidemia, unspecified; K21.9 Gastro-esophageal reflux disease without esophagitis; Z98.890 Other specified postprocedural states
CPT/HCPCS: 36415; 70450; 80053; 82947; 83735; 84484; 85025; 93005; 96360; 99284; J7030; J7040; J8597